=== PATIENT | female | born 2000 | race Two or more races ===

== ENCOUNTER 2024-11-10 13:51 | Emergency (ER) | payer OTHER, BC ==
[~2024-11-10] VITALS: Ht 157.5 cm; Wt 58.2 kg
[2024-11-10 16:16] LABS: Urine Bacteria FEW /hpf (None Seen); Urine Blood Negative /uL (Negative); Urine Clarity Turbid (Clear); Urine Color Light-Yellow (Yellow); Urine Mucus FEW (None Seen); Urine Protein, UAD Negative (Negative); Urine Specific Gravity 1.015 (1.001-1.035); Urine Squamous Epithelial Cell MOD /hpf (<5); Urine Urobilinogen Normal (Negative); Urine WBC 13 /HPF (0-5)
[2024-11-10] MEDS: ACETAMINOPHEN 325 MG TAB PO ONE (16:30)
[2024-11-10 16:31] VITALS: BP 136/72; PULSE 86; RESP 16; O2SAT 97
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
[2024-11-10] MEDS ORDERED: NITR-87 PO (17:29)
[2024-11-10] MEDS ORDERED: IBUP-1453 PO (17:30)
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
[2024-11-10 17:33] VITALS: TEMP 98.2
[2024-11-10] MEDS ORDERED: CYCL-839 PO (17:36)
== END 2024-11-10 17:36 | disposition home or self-care (01) ==
LOC: ER 13:51
DX: S00.33XA Contusion of nose, initial encounter (principal); M25.531 Pain in right wrist; N39.0 Urinary tract infection, site not specified; Z79.899 Other long term (current) drug therapy; V89.2XXA Person injured in unspecified motor-vehicle accident, traffic, initial encounter; Y93.89 Activity, other specified; Y92.488 Other paved roadways as the place of occurrence of the external cause; Y99.8 Other external cause status
CPT/HCPCS: 70160; 73110; 81001; 81025